=== PATIENT | male | born 1970 | race Caucasian/White ===

== ENCOUNTER 2019-08-07 06:17 | Day surgery (SDC) | payer BC ==
[~2019-08-07] VITALS: Ht 182.9 cm; Wt 113.6 kg
[2019-08-07] MEDS ORDERED: GLUCOPHAGE500 MG/TAB PO (06:34)
[2019-08-07 06:35] VITALS: BP 148/98; PULSE 81; TEMP 98.3
[2019-08-07] MEDS ORDERED: LIPITOR 40MG TA40 MG PO (06:35)
[2019-08-07 07:50] VITALS: BP 112/86; PULSE 61
--- NOTE | 2019-08-07 07:50 | NUR ---
Patient returns to room 5 per cart and transfers from cart to recliner with two person assist. IV fluids infusing. Denies pain or nausea. Given coffee and muffin. Call light in reach.
--- NOTE | 2019-08-07 08:00 | NUR ---
Dr. Vicente here and talks with the patient and all questions answered.
[2019-08-07 08:05] VITALS: BP 118/77; PULSE 67
--- NOTE | 2019-08-07 08:05 | NUR ---
Pt tolerating food and fluids without difficulties. in room to consult with pt.
[2019-08-07 08:15] VITALS: BP 111/72; PULSE 68
--- NOTE | 2019-08-07 08:15 | NUR ---
Discharge instructions reviewed. Pt voices understanding. IV site discontinued with all parts intact. Pt up to dress. Call light within reach.
--- NOTE | 2019-08-07 08:40 | NUR ---
Pt escorted to private car via wheel chair. Pt accompanied home by his daughter.
== END 2019-08-07 08:40 | disposition home or self-care (01) ==
LOC: SDCO 06:17
DX: Z12.11 Encounter for screening for malignant neoplasm of colon (principal); D12.2 Benign neoplasm of ascending colon; E78.00 Pure hypercholesterolemia, unspecified; E11.9 Type 2 diabetes mellitus without complications; Z79.84 Long term (current) use of oral hypoglycemic drugs
CPT/HCPCS: J2250; J2704; J3010; J7030